=== PATIENT | male | born 1960 | race American Indian/Alaskan Native ===

== ENCOUNTER 2016-10-09 12:21 | Emergency (ER) | payer MEDICARE ==
[2016-10-09 13:09] LABS: Urine Drugs of Abuse Note Disclamer
[2016-10-09 13:18] LABS: Bilirubin,Urine NEG (Negative); Blood,Urine NEG (Negative); Ketones,Urine TR mg/dL (Negative); Leukocyte Esterase,Urine NEG (Negative); Mucus,Urine 1+ /HPF; Nitrite,Urine NEG (Negative); Protein,Urine <15 mg/dL mg/dL (Negative)
[2016-10-09 13:40] LABS: Basophils % (Auto) 0.8 % (0.0-1.8); Eosinophils % (Auto) 2.9 % (0.0-4.3); Hemoglobin 14.3 gm/dl (11.8-15.2); Mean Corpuscular HGB Conc 33 % (32-34); Mean Corpuscular Hemoglobin 33 pg (28-32); Mean Corpuscular Volume 100 fl (84-94); Platelet Count 141 K/mm3 (140-440); Red Cell Distribution Width 13.6 % (13.2-15.2); White Blood Count 6.2 K/mm3 (4.5-11.0)
[2016-10-09] MEDS ORDERED: ATIVAN PO ONE (13:43)
[2016-10-09] MEDS ORDERED: HALDOL PO ONE (13:44)
[2016-10-09 13:54] LABS: Anion Gap 18 mmol/L; Blood Urea Nitrogen 8 mg/dL (9-20); Calcium 8.9 mg/dL (8.4-10.2); Carbon Dioxide 24 mmol/L (22-30); Chloride 101.4 mmol/L (98-107); Glucose 142 mg/dL (75-100); Potassium 3.6 mmol/L (3.6-5.0); Sodium 140 mmol/L (137-145)
--- NOTE | 2016-10-09 13:54 | Emergency Department Report ---
ED Psych HPI - General Chief Complaint: Psych Stated Complaint: MH/EVAL/VIOLENT Time Seen by Provider: 10/09/16 13:43 Source: patient, per diem physical therapist assistant Mode of arrival: Ambulatory - History of Present Illness MD Complaint: altered mental status -: Sudden Associated Psychiatric Symptoms: depression, auditory hallucinations History of same: Yes Quality: constant Improves With: medication Context: not taking psychiatric Associated Symptoms: denies: confusion, headache, shortness of breath, nausea, vomiting, syncope Treatments Prior to Arrival: placed on mental he - Related Data Home Medications Medication Instructions Recorded Confirmed Last Taken Depakote 1,000 mg PO HS 09/01/16 10/09/16 Unknown ZyPREXA 5 mg PO DAILY 09/01/16 10/09/16 Unknown ZyPREXA 20 mg PO HS 09/01/16 10/09/16 Unknown Allergies Allergy/AdvReac Type Severity Reaction Status Date / Time No Known Allergies Allergy Verified 10/09/16 12:44 ED Review of Systems ROS: Stated complaint: MH/EVAL/VIOLENT Other details as noted in HPI Comment: All other systems reviewed and negative ED Past Medical Hx - Past Medical History Hx Psychiatric Treatment: Yes (SCHIZOAFFECTIVE / IMPULSIVE BEHAVIOR) - Social History Smoking Status: Current Every Day Smoker Substance Use Type: None - Medications Home Medications: Home Medications Medication Instructions Recorded Confirmed Last Taken Type Depakote 1,000 mg PO HS 09/01/16 10/09/16 Unknown History ZyPREXA 5 mg PO DAILY 09/01/16 10/09/16 Unknown History ZyPREXA 20 mg PO HS 09/01/16 10/09/16 Unknown History ED Physical Exam - General Limitations: Altered Mental Status General appearance: alert, in no apparent distress - Head Head exam: Present: atraumatic, normocephalic - Eye Eye exam: Present: normal appearance - ENT ENT exam: Present: mucous membranes moist - Neck Neck exam: Present: normal inspection - Respiratory Respiratory exam: Present: normal lung sounds bilaterally. Absent: respiratory distress - Cardiovascular Cardiovascular Exam: Present: regular rate, normal rhythm. Absent: systolic murmur, diastolic murmur, rubs, gallop - GI/Abdominal GI/Abdominal exam: Present: soft, normal bowel sounds - Rectal Rectal exam: Present: deferred - Extremities Exam Extremities exam: Present: normal inspection - Back Exam Back exam: Present: normal inspection - Neurological Exam Neurological exam: Present: alert, oriented X3 - Psychiatric Psychiatric exam: Present: agitated - Skin Skin exam: Present: warm, dry, intact, normal color. Absent: rash ED Course Vital Signs 10/09/16 12:40 Temperature 98.2 F Pulse Rate 100 H Respiratory 20 Rate Blood Pressure 157/94 O2 Sat by Pulse 98 Oximetry ED Medical Decision Making - Lab Data Result diagrams: 10/09/16 13:23 Critical care attestation.: If time is entered above; I have spent that time in minutes in the direct care of this critically ill patient, excluding procedure time. ED Disposition Condition: Stable Referrals: PRIMARY CARE, [Primary Care Provider] - 3-5 Days
[2016-10-09 14:44] LABS: Urine Drugs of Abuse Note Disclamer
[2016-10-10] MEDS ORDERED: ATIVAN PO ONE (01:30)
[2016-10-10] MEDS ORDERED: ATIVAN IM PRN (02:01)
--- NOTE | 2016-10-10 02:03 | Event Note ---
Date: 10/10/16 Vital signs are reviewed and appreciated. As needed lorazepam and scheduled Zyprexa ordered. Valproic acid level is added on, depending on this level, we will reinitiate the patient's valproic acid. Psychiatric consultation and placement are pending at this time. Vital Signs 10/09/16 10/09/16 10/09/16 12:40 13:27 20:30 Temperature 98.2 F Pulse Rate 100 H 72 Respiratory 20 20 16 Rate Blood Pressure 157/94 Blood Pressure 142/78 [Left] O2 Sat by Pulse 98 98 100 Oximetry
[2016-10-10] MEDS ORDERED: ZYPREXA 5 MG PO SCH (10:00)
[2016-10-10 13:05] VITALS: BP 111/82
[2016-10-10] MEDS ORDERED: ZYPREXA 20 MG PO SCH (22:00)
== END 2016-10-10 14:53 ==
LOC: ED 12:21 → EEVIPCON 12:21 → ED 10-10 14:53
DX: R41.82 Altered mental status, unspecified (principal); F32.9 Major depressive disorder, single episode, unspecified; R44.0 Auditory hallucinations; F25.9 Schizoaffective disorder, unspecified; F17.200 Nicotine dependence, unspecified, uncomplicated
CPT/HCPCS: 36415; 80048; 80164; 80307; 81001; 85025; 96372; 99285; G0480; J2060; 80320

== ENCOUNTER → 2018-08-18 02:08 | Emergency (ER) | payer MEDICARE | END | disposition left against medical advice (07) | LOC: ED 02:08 ==

== ENCOUNTER 2018-09-12 12:49 | Emergency (ER) | payer MEDICARE ==
--- NOTE | 2018-09-12 12:59 | Emergency Department Report ---
Chief Complaint: Extremity Problem,Nontraumatic Stated Complaint: back pain Time Seen by Provider: 09/12/18 12:55 - HPI History of Present Illness: ambulatory to triage co back pain unclear what pt is telling me hx schizophrenia lives in apartment with someone else rambling disorganized speech cig etoh thc no si no hi aud hallucination MSE completed MSE screening note: Focused history and physical exam performed. Due to findings the following was ordered: ED Disposition for MSE Condition: Stable
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
[2018-09-12 14:14] LABS: Basophils % (Auto) 0.7 % (0.0-1.8); Eosinophils # (Auto) 0.1 K/mm3 (0.0-0.4); Eosinophils % (Auto) 2.7 % (0.0-4.3); Hematocrit 39.4 % (35.5-45.6); Hemoglobin 13.1 gm/dl (11.8-15.2); Lymphocytes # (Auto) 1.2 K/mm3 (1.2-5.4); Lymphocytes % (Auto) 35.2 % (13.4-35.0); Mean Corpuscular HGB Conc 33 % (32-34); Mean Corpuscular Volume 101 fl (84-94); Monocytes # (Auto) 0.2 K/mm3 (0.0-0.8); Monocytes % (Auto) 6.6 % (0.0-7.3); Platelet Count 124 K/mm3 (140-440); Red Blood Count 3.89 M/mm3 (3.65-5.03); Red Cell Distribution Width 13.9 % (13.2-15.2)
[2018-09-12 14:31] LABS: BUN/Creatinine Ratio 16; Blood Urea Nitrogen 11 mg/dL (9-20); Hemolysis Index 6
[2018-09-12 15:43] VITALS: BP 133/79
[2018-09-12 16:34] LABS: Bilirubin,Urine NEG (Negative); Blood,Urine NEG (Negative); Color,Urine Yellow (Yellow); Protein,Urine <15 mg/dL mg/dL (Negative)
[2018-09-12 16:43] LABS: Amphetamine Screen,Urine PRESUMPTIVE NEGATIVE; Benzodiazepines Screen,Urine PRESUMPTIVE NEGATIVE; Cannabinoid Screen,Urine PRESUMPTIVE NEGATIVE; Cocaine Screen,Urine PRESUMPTIVE NEGATIVE; Methadone Screen,Urine PRESUMPTIVE NEGATIVE; Opiate Screen,Urine PRESUMPTIVE NEGATIVE
== END 2018-09-12 17:36 | disposition left against medical advice (07) ==
LOC: ED 12:49
DX: F20.9 Schizophrenia, unspecified (principal); F29 Unspecified psychosis not due to a substance or known physiological condition; F17.200 Nicotine dependence, unspecified, uncomplicated; F12.10 Cannabis abuse, uncomplicated; Z79.899 Other long term (current) drug therapy
CPT/HCPCS: 36415; 80048; 80307; 81001; 85025; 99283; G0480; 80320

== ENCOUNTER 2018-10-22 18:11 | Emergency (ER) | payer MEDICARE | END 2018-10-22 18:12 | disposition left against medical advice (07) | LOC: ED 18:11 | DX: M79.606 Pain in leg, unspecified (principal); Z53.21 Procedure and treatment not carried out due to patient leaving prior to being seen by health care provider ==

== ENCOUNTER 2019-07-08 20:18 | Emergency (ER) | payer MEDICAID, MEDICARE ==
[2019-07-08 21:34] VITALS: BP 148/84
--- NOTE | 2019-07-08 22:44 | Emergency Department Report ---
Blank Doc - Documentation Documentation: 59-year-old male that presents with bilatearl leg pain and weakness after prol leonila walking. This initial assessment/diagnostic orders/clinical plan/treatment(s) is/are subject to change based on patient's health status, clinical progression and re- assessment by fellow clinical providers in the ED. Further treatment and workup at subsequent clinical providers discretion. Patient/guardians urged not to elope from the ED as their condition may be serious if not clinically assessed and managed. Initial orders include: 1- Patient sent to [facility] for further evaluation and treatment 2- labs 3- UA
[2019-07-08 23:38] LABS: Basophils % (Auto) 0.5 % (0.0-1.8); Eosinophils # (Auto) 0.3 K/mm3 (0.0-0.4); Eosinophils % (Auto) 5.2 % (0.0-4.3); Hematocrit 36.9 % (35.5-45.6); Hemoglobin 12.3 gm/dl (11.8-15.2); Lymphocytes # (Auto) 1.2 K/mm3 (1.2-5.4); Mean Corpuscular HGB Conc 33 % (32-34); Mean Corpuscular Volume 102 fl (84-94); Monocytes # (Auto) 0.5 K/mm3 (0.0-0.8); Monocytes % (Auto) 9.4 % (0.0-7.3); Platelet Count 161 K/mm3 (140-440); Red Blood Count 3.61 M/mm3 (3.65-5.03); Red Cell Distribution Width 13.3 % (13.2-15.2)
[2019-07-09 00:02] LABS: BUN/Creatinine Ratio 19; Blood Urea Nitrogen 13 mg/dL (9-20); Calcium 9.2 mg/dL (8.4-10.2); Hemolysis Index 6
== END 2019-07-08 23:00 | disposition left against medical advice (07) ==
LOC: ED 20:18
DX: M79.606 Pain in leg, unspecified (principal); Z53.21 Procedure and treatment not carried out due to patient leaving prior to being seen by health care provider
CPT/HCPCS: 36415; 80048; 82550; 85025

== ENCOUNTER 2019-07-13 00:52 | Emergency (ER) | payer MEDICAID ==
[2019-07-13 01:33] VITALS: BP 164/70
== END 2019-07-13 01:43 | disposition left against medical advice (07) ==
LOC: ED 00:52
DX: M79.604 Pain in right leg (principal); Z53.21 Procedure and treatment not carried out due to patient leaving prior to being seen by health care provider

== ENCOUNTER 2019-07-16 21:23 | Emergency (ER) | payer MEDICARE, MEDICAID ==
[2019-07-16 23:54] LABS: Basophils % (Auto) 0.4 % (0.0-1.8); Eosinophils # (Auto) 0.1 K/mm3 (0.0-0.4); Eosinophils % (Auto) 2.8 % (0.0-4.3); Lymphocytes # (Auto) 0.7 K/mm3 (1.2-5.4); Lymphocytes % (Auto) 15.5 % (13.4-35.0); Mean Corpuscular HGB Conc 33 % (32-34); Mean Corpuscular Volume 103 fl (84-94); Monocytes # (Auto) 0.4 K/mm3 (0.0-0.8); Monocytes % (Auto) 7.8 % (0.0-7.3); Platelet Count 142 K/mm3 (140-440); Red Blood Count 3.51 M/mm3 (3.65-5.03); Red Cell Distribution Width 13.4 % (13.2-15.2)
[2019-07-17 00:27] LABS: BUN/Creatinine Ratio 22; Blood Urea Nitrogen 13 mg/dL (9-20); Calcium 9.3 mg/dL (8.4-10.2); Hemolysis Index 17
--- NOTE | 2019-07-17 05:10 | Emergency Department Report ---
ED Psych HPI - General Chief Complaint: Psych Stated Complaint: MH EVAL/BILATERAL LEG PAIN Time Seen by Provider: 07/16/19 22:47 Source: EMS Mode of arrival: Ambulatory - History of Present Illness Initial Comments: Patient is a 59-year-old -Welsh male with past history of schizophrenia who is presenting with auditory hallucinations. Patient states is off his medications and would like to get the refill. Patient also states that he has lower extremity edema. He is unable to say how long the edema is present. Patient does has disorganized thoughts and is a poor historian. Patient denies any homicidal suicidal ideations at this time. Patient denies any chest pain shortness of breath associated with leg swelling. - Related Data Home Medications Medication Instructions Recorded Confirmed Last Taken Depakote 1,000 mg PO HS 09/01/16 07/16/19 Unknown ZyPREXA 5 mg PO DAILY 09/01/16 07/16/19 Unknown ZyPREXA 20 mg PO HS 09/01/16 07/16/19 Unknown Previous Rx's Medication Instructions Recorded Last Taken Type Cyclobenzaprine [Flexeril] 10 mg PO Q8H PRN #15 tablet 07/30/19 Unknown Rx Ibuprofen [Motrin] 600 mg PO Q8H PRN #15 tablet 07/30/19 Unknown Rx Allergies Allergy/AdvReac Type Severity Reaction Status Date / Time No Known Allergies Allergy Verified 09/12/18 12:55 ED Review of Systems ROS: Stated complaint: MH EVAL/BILATERAL LEG PAIN Other details as noted in HPI Comment: All other systems reviewed and negative ED Past Medical Hx - Past Medical History Previous Medical History?: Yes Hx Psychiatric Treatment: Yes (SCHIZOAFFECTIVE / IMPULSIVE BEHAVIOR) - Surgical History Past Surgical History?: No - Social History Smoking Status: Current Every Day Smoker Substance Use Type: None - Medications Home Medications: Home Medications Medication Instructions Recorded Confirmed Last Taken Type Depakote 1,000 mg PO HS 09/01/16 07/16/19 Unknown History ZyPREXA 5 mg PO DAILY 09/01/16 07/16/19 Unknown History ZyPREXA 20 mg PO HS 09/01/16 07/16/19 Unknown History Cyclobenzaprine [Flexeril] 10 mg PO Q8H PRN #15 tablet 07/30/19 Unknown Rx Ibuprofen [Motrin] 600 mg PO Q8H PRN #15 tablet 07/30/19 Unknown Rx ED Physical Exam - General Limitations: No Limitations General appearance: alert, in no apparent distress - Head Head exam: Present: atraumatic, normocephalic - Eye Eye exam: Present: normal appearance - ENT ENT exam: Present: mucous membranes moist - Neck Neck exam: Present: normal inspection - Respiratory Respiratory exam: Present: normal lung sounds bilaterally. Absent: respiratory distress, wheezes, rales, rhonchi - Cardiovascular Cardiovascular Exam: Present: regular rate, normal rhythm. Absent: systolic murmur, diastolic murmur, rubs, gallop - GI/Abdominal GI/Abdominal exam: Present: soft, normal bowel sounds. Absent: distended, tenderness, guarding - Rectal Rectal exam: Present: deferred - Extremities Exam Extremities exam: Present: normal inspection, other (2+ edema to the bilateral lower extremities) - Back Exam Back exam: Present: normal inspection - Neurological Exam Neurological exam: Present: alert, oriented X3 - Psychiatric Psychiatric exam: Present: normal affect, normal mood - Skin Skin exam: Present: warm, dry, intact, normal color. Absent: rash ED Course Vital Signs 07/16/19 07/16/19 07/17/19 21:31 23:12 20:02 Temperature 99.2 F 99.0 F Pulse Rate 90 85 Respiratory 16 18 18 Rate Blood Pressure 116/68 Blood Pressure 132/88 [Right] O2 Sat by Pulse 97 97 Oximetry 07/17/19 20:15 Temperature 98.5 F Pulse Rate 85 Respiratory 16 Rate Blood Pressure Blood Pressure 129/76 [Right] O2 Sat by Pulse 96 Oximetry - Reevaluation(s) Reevaluation #1: 07/17/19 05:09 Patient is medically cleared for psychiatric evaluation. Lower extremity edema does not appear to be secondary to congestive heart failure. At the end of my shift urine has not been collected. 07/17/19 05:09 07/17/19 05:09 ED Medical Decision Making - Lab Data Result diagrams: 07/16/19 23:37 07/16/19 23:37 Lab Results 07/16/19 07/16/19 07/16/19 Range/Units 23:37 23:37 23:37 WBC 4.7 (4.5-11.0) K/mm3 RBC 3.51 L (3.65-5.03) M/mm3 Hgb 12.0 (11.8-15.2) gm/dl Hct 36.0 (35.5-45.6) % MCV 103 H (84-94) fl MCH 34 H (28-32) pg MCHC 33 (32-34) % RDW 13.4 (13.2-15.2) % Plt Count 142 (140-440) K/mm3 Lymph % (Auto) 15.5 (13.4-35.0) % [place] % (Auto) 7.8 H (0.0-7.3) % Eos % (Auto) 2.8 (0.0-4.3) % Baso % (Auto) 0.4 (0.0-1.8) % Lymph # 0.7 L (1.2-5.4) K/mm3 [place] # 0.4 (0.0-0.8) K/mm3 Eos # 0.1 (0.0-0.4) K/mm3 Baso # 0.0 (0.0-0.1) K/mm3 Seg Neutrophils % 73.5 H (40.0-70.0) % Seg Neutrophils # 3.4 (1.8-7.7) K/mm3 Sodium 140 (137-145) mmol/L Potassium 4.7 (3.6-5.0) mmol/L Chloride 102.0 (98-107) mmol/L Carbon Dioxide 25 (22-30) mmol/L Anion Gap 18 mmol/L BUN 13 (9-20) mg/dL Creatinine 0.6 L (0.8-1.5) mg/dL Estimated GFR > 60 ml/min BUN/Creatinine Ratio 22 % Glucose 102 H (75-100) mg/dL Calcium 9.3 (8.4-10.2) mg/dL NT-Pro-B Natriuret Pep 60.42 (0-900) pg/mL Salicylates < 0.3 L (2.8-20.0) mg/dL Acetaminophen (10.0-30.0) ug/mL Plasma/Serum Alcohol (0-0.07) % 07/16/19 07/16/19 Range/Units 23:37 23:37 WBC (4.5-11.0) K/mm3 RBC (3.65-5.03) M/mm3 Hgb (11.8-15.2) gm/dl Hct (35.5-45.6) % MCV (84-94) fl MCH (28-32) pg MCHC (32-34) % RDW (13.2-15.2) % Plt Count (140-440) K/mm3 Lymph % (Auto) (13.4-35.0) % [place] % (Auto) (0.0-7.3) % Eos % (Auto) (0.0-4.3) % Baso % (Auto) (0.0-1.8) % Lymph # (1.2-5.4) K/mm3 [place] # (0.0-0.8) K/mm3 Eos # (0.0-0.4) K/mm3 Baso # (0.0-0.1) K/mm3 Seg Neutrophils % (40.0-70.0) % Seg Neutrophils # (1.8-7.7) K/mm3 Sodium (137-145) mmol/L Potassium (3.6-5.0) mmol/L Chloride (98-107) mmol/L Carbon Dioxide (22-30) mmol/L Anion Gap mmol/L BUN (9-20) mg/dL Creatinine (0.8-1.5) mg/dL Estimated GFR ml/min BUN/Creatinine Ratio % Glucose (75-100) mg/dL Calcium (8.4-10.2) mg/dL NT-Pro-B Natriuret Pep (0-900) pg/mL Salicylates (2.8-20.0) mg/dL Acetaminophen < 5.0 L (10.0-30.0) ug/mL Plasma/Serum Alcohol < 0.01 (0-0.07) % Critical care attestation.: If time is entered above; I have spent that time in minutes in the direct care of this critically ill patient, excluding procedure time. ED Disposition Clinical Impression: Acute psychosis Disposition: [id number]/TX-65 PSY HOSP/PSY UNIT Is pt being admited?: No Does the pt Need Aspirin: No Condition: Stable Referrals: CHET RENTERIA MD [Primary Care Provider] - 3-5 Days Time of Disposition: 13:55
[2019-07-17 06:55] LABS: Bilirubin,Urine NEG (Negative); Blood,Urine NEG (Negative); Color,Urine Straw (Yellow); Protein,Urine <15 mg/dL mg/dL (Negative); RBC,Urine < 1.0 /HPF (0.0-6.0); WBC,Urine < 1.0 /HPF (0.0-6.0)
[2019-07-17 07:24] LABS: Amphetamine Screen,Urine PRESUMPTIVE NEGATIVE; Benzodiazepines Screen,Urine PRESUMPTIVE NEGATIVE; Cocaine Screen,Urine PRESUMPTIVE NEGATIVE; Methadone Screen,Urine PRESUMPTIVE NEGATIVE; Opiate Screen,Urine PRESUMPTIVE NEGATIVE
[2019-07-17 07:47] LABS: Cannabinoid Screen,Urine PRESUMPTIVE POSITIVE
[2019-07-17 20:17] VITALS: BP 129/76
== END 2019-07-17 21:00 ==
LOC: ED 21:23 → EEVIPCON 21:23 → ED 07-17 21:00
DX: F25.8 Other schizoaffective disorders (principal); R44.0 Auditory hallucinations; R60.0 Localized edema; F17.200 Nicotine dependence, unspecified, uncomplicated; Z79.899 Other long term (current) drug therapy
CPT/HCPCS: 36415; 80048; 80307; 80320; 81001; 83880; 85025; G0480

== ENCOUNTER 2019-07-29 22:51 | Emergency (ER) | payer MEDICAID ==
[2019-07-29 22:57] VITALS: BP 124/72
[2019-07-30] MEDS ORDERED: IBUPROFEN 600 MG TAB PO ONE (03:33)
[2019-07-30] MEDS ORDERED: ACETAMINOPHEN 500 MG TAB PO ONE (03:33)
--- NOTE | 2019-07-30 03:38 | Emergency Department Report ---
ED Back Pain/Injury HPI - General Chief Complaint: Back Pain/Injury Stated Complaint: LOWER BACK PAIN Source: patient Limitations: No Limitations - History of Present Illness Initial Comments: Patient is a 59 year-old male with a history of chronic anxiety and depression and schizophrenia who presents to the ED with [place] of acute onset persistent nontraumatic low back pain for the last 8 hours after walking for a while. Patient denies fall, traumatic injury, heavy lifting, dysuria, urinary frequency and urgency, nausea, vomiting, fever, chills, hematuria or urinary frequency and urgency. MD Complaint: back pain, other (left knee pain) -: Sudden, hour(s) (8) Similar Symptoms Previously: No Place: home Radiation: none Severity: moderate Severity scale (0 -10): 6 Quality: sharp, aching Consistency: constant Improves With: none Worsens With: movement, walking Context: unknown Associated Symptoms: denies other symptoms. denies: weakness, chest pain, difficulty walking, cough, difficulty urinating, diaphoresis, incontinence, constipation, headaches, abdominal pain, loss of appetite, malaise, nausea/vomiting, rash, syncope - Related Data Home Medications Medication Instructions Recorded Confirmed Last Taken Depakote 1,000 mg PO HS 09/01/16 07/16/19 Unknown ZyPREXA 5 mg PO DAILY 09/01/16 07/16/19 Unknown ZyPREXA 20 mg PO HS 09/01/16 07/16/19 Unknown Previous Rx's Medication Instructions Recorded Last Taken Type Cyclobenzaprine [Flexeril] 10 mg PO Q8H PRN #15 tablet 07/30/19 Unknown Rx Ibuprofen [Motrin] 600 mg PO Q8H PRN #15 tablet 07/30/19 Unknown Rx Allergies Allergy/AdvReac Type Severity Reaction Status Date / Time No Known Allergies Allergy Verified 09/12/18 12:55 ED Review of Systems ROS: Stated complaint: LOWER BACK PAIN Other details as noted in HPI Constitutional: denies: chills, fever Eyes: denies: eye pain, eye discharge, vision change ENT: denies: ear pain, throat pain Respiratory: denies: cough, shortness of breath, wheezing Cardiovascular: denies: chest pain, palpitations Endocrine: no symptoms reported Gastrointestinal: denies: abdominal pain, nausea, diarrhea Genitourinary: denies: urgency, dysuria Musculoskeletal: back pain, arthralgia (left knee pain). denies: joint swelling Skin: denies: rash, lesions Neurological: denies: headache, weakness, paresthesias Psychiatric: denies: anxiety, depression Hematological/Lymphatic: denies: easy bleeding, easy bruising ED Past Medical Hx - Past Medical History Previous Medical History?: Yes Hx Psychiatric Treatment: Yes (SCHIZOAFFECTIVE / IMPULSIVE BEHAVIOR) - Surgical History Past Surgical History?: No - Social History Smoking Status: Current Every Day Smoker Substance Use Type: Marijuana - Medications Home Medications: Home Medications Medication Instructions Recorded Confirmed Last Taken Type Depakote 1,000 mg PO HS 09/01/16 07/16/19 Unknown History ZyPREXA 5 mg PO DAILY 09/01/16 07/16/19 Unknown History ZyPREXA 20 mg PO HS 09/01/16 07/16/19 Unknown History Cyclobenzaprine [Flexeril] 10 mg PO Q8H PRN #15 tablet 07/30/19 Unknown Rx Ibuprofen [Motrin] 600 mg PO Q8H PRN #15 tablet 07/30/19 Unknown Rx ED Physical Exam - General Limitations: No Limitations General appearance: alert, in no apparent distress - Head Head exam: Present: atraumatic, normocephalic, normal inspection - Eye Eye exam: Present: normal appearance, PERRL, EOMI Pupils: Present: normal accommodation - ENT ENT exam: Present: normal exam, normal orophraynx, mucous membranes moist, TM's normal bilaterally, normal external ear exam - Neck Neck exam: Present: normal inspection, full ROM - Respiratory Respiratory exam: Present: normal lung sounds bilaterally. Absent: respiratory distress, wheezes, chest wall tenderness, accessory muscle use, prolonged expiratory - Cardiovascular Cardiovascular Exam: Present: regular rate, normal rhythm, normal heart sounds. Absent: systolic murmur, diastolic murmur, rubs, gallop - GI/Abdominal GI/Abdominal exam: Present: soft, normal bowel sounds. Absent: tenderness, guarding, hyperactive bowel sounds - Extremities Exam Extremities exam: Present: normal inspection, full ROM, normal capillary refill - Back Exam Back exam: Present: normal inspection, full ROM, tenderness (palpable lumbosacral paraspinal musculoskeletal tenderness), muscle spasm, paraspinal tenderness - Neurological Exam Neurological exam: Present: alert, oriented X3, CN II-XII intact, normal gait, reflexes normal - Psychiatric Psychiatric exam: Present: normal affect, normal mood - Skin Skin exam: Present: warm, dry, intact, normal color. Absent: rash ED Course Vital Signs 07/29/19 22:55 Temperature 98.4 F Pulse Rate 79 Respiratory 16 Rate Blood Pressure 124/72 O2 Sat by Pulse 100 Oximetry ED Medical Decision Making - Medical Decision Making This is a 59-year-old male who presented to the ED with acute onset persistent low back pain and left knee pain after walking for a while. In the ED, patient is alert and oriented 3 and is not in any distress. Patient was treated for pain in the ED and discharged home on muscle relaxants and pain medications. Patient was advised to follow-up with his primary care physician in 5-7 days for reevaluation or return to the ED immediately if symptoms get worse. - Differential Diagnosis muscle spasm; low back pain, muscle strain Critical care attestation.: If time is entered above; I have spent that time in minutes in the direct care of this critically ill patient, excluding procedure time. ED Disposition Clinical Impression: Spasm of muscle of lower back, Strain of muscle, fascia and tendon of lower back, initial encounter Muscle strain of left knee Qualifiers: Encounter type: initial encounter Qualified Code(s): S86.912A - Strain of unspecified muscle(s) and tendon(s) at lower leg level, left leg, initial encounter Disposition: - TO HOME OR SELFCARE Is pt being admited?: No Does the pt Need Aspirin: No Condition: Stable Instructions: Muscle Strain (ED), Acute Low Back Pain (ED), Muscle Spasm (ED) Additional Instructions: Take medications with food, drink plenty of fluids and follow-up with primary care physician in 7-10 days for reevaluation. Return to the ED immediately if symptoms get worse. Prescriptions: Cyclobenzaprine [Flexeril] 10 mg PO Q8H PRN #15 tablet PRN Reason: Muscle Spasm Ibuprofen [Motrin] 600 mg PO Q8H PRN #15 tablet PRN Reason: Pain Referrals: PRIMARY CARE, [Primary Care Provider] - 3-5 Days Time of Disposition: 03:37 Print Language: BULGARIAN
== END 2019-07-30 04:39 | disposition home or self-care (01) ==
LOC: ED 22:51
DX: S39.012A Strain of muscle, fascia and tendon of lower back, initial encounter (principal); S86.912A Strain of unspecified muscle(s) and tendon(s) at lower leg level, left leg, initial encounter; M62.830 Muscle spasm of back; F12.10 Cannabis abuse, uncomplicated; F17.200 Nicotine dependence, unspecified, uncomplicated; Z79.899 Other long term (current) drug therapy; X58.XXXA Exposure to other specified factors, initial encounter; Y93.89 Activity, other specified; Y92.89 Other specified places as the place of occurrence of the external cause; Y99.8 Other external cause status

== ENCOUNTER 2019-09-15 13:53 | Emergency (ER) | payer MEDICARE ==
--- NOTE | 2019-09-15 15:03 | Emergency Department Report ---
ED General Adult HPI - General Chief complaint: Psych Stated complaint: 1013 Time Seen by Provider: 09/15/19 14:43 Source: police Mode of arrival: Ambulatory Limitations: No Limitations - History of Present Illness Initial comments: The patient presents to the emergency department via [facility] for trespassing and penal someone else's property. Patient denies any homicidal suicidal ideations. Patient states he is having issues with housing secondary to the incident that happened at [place]. Patient has no complaints of chest pain, shortness breath, or headache. -: Sudden Severity scale (0 -10): 0 Consistency: now resolved Improves with: none Worsens with: none Associated Symptoms: denies other symptoms Treatments Prior to Arrival: none - Related Data Home Medications Medication Instructions Recorded Confirmed Last Taken Depakote 1,000 mg PO HS 09/01/16 07/16/19 Unknown ZyPREXA 5 mg PO DAILY 09/01/16 07/16/19 Unknown ZyPREXA 20 mg PO HS 09/01/16 07/16/19 Unknown Previous Rx's Medication Instructions Recorded Last Taken Type Cyclobenzaprine [Flexeril] 10 mg PO Q8H PRN #15 tablet 07/30/19 Unknown Rx Ibuprofen [Motrin] 600 mg PO Q8H PRN #15 tablet 07/30/19 Unknown Rx Allergies Allergy/AdvReac Type Severity Reaction Status Date / Time No Known Allergies Allergy Verified 09/12/18 12:55 ED Review of Systems ROS: Stated complaint: 1013 Other details as noted in HPI Comment: All other systems reviewed and negative Constitutional: denies: chills, fever Eyes: denies: eye pain, eye discharge, vision change ENT: denies: ear pain, throat pain Respiratory: denies: cough, shortness of breath, wheezing Cardiovascular: denies: chest pain, palpitations Endocrine: no symptoms reported Gastrointestinal: denies: abdominal pain, nausea, diarrhea Genitourinary: denies: urgency, dysuria Musculoskeletal: denies: back pain, joint swelling, arthralgia Skin: denies: rash, lesions Neurological: denies: headache, weakness, paresthesias Psychiatric: denies: anxiety, depression, auditory hallucinations, visual hallucinations, homicidal thoughts, suicidal thoughts Hematological/Lymphatic: denies: easy bleeding, easy bruising ED Past Medical Hx - Past Medical History Previous Medical History?: Yes Hx Psychiatric Treatment: Yes (SCHIZOAFFECTIVE / IMPULSIVE BEHAVIOR) - Social History Smoking Status: Current Every Day Smoker Substance Use Type: Alcohol, Marijuana - Medications Home Medications: Home Medications Medication Instructions Recorded Confirmed Last Taken Type Depakote 1,000 mg PO HS 09/01/16 07/16/19 Unknown History ZyPREXA 5 mg PO DAILY 09/01/16 07/16/19 Unknown History ZyPREXA 20 mg PO HS 09/01/16 07/16/19 Unknown History Cyclobenzaprine [Flexeril] 10 mg PO Q8H PRN #15 tablet 07/30/19 Unknown Rx Ibuprofen [Motrin] 600 mg PO Q8H PRN #15 tablet 07/30/19 Unknown Rx ED Physical Exam - General Limitations: No Limitations General appearance: alert, in no apparent distress - Head Head exam: Present: atraumatic, normocephalic - Eye Eye exam: Present: normal appearance, PERRL, EOMI - ENT ENT exam: Present: mucous membranes moist - Neck Neck exam: Present: normal inspection - Respiratory Respiratory exam: Present: normal lung sounds bilaterally. Absent: respiratory distress - Cardiovascular Cardiovascular Exam: Present: regular rate, normal rhythm. Absent: systolic murmur, diastolic murmur, rubs, gallop - GI/Abdominal GI/Abdominal exam: Present: soft, normal bowel sounds - Rectal Rectal exam: Present: deferred - Extremities Exam Extremities exam: Present: normal inspection - Back Exam Back exam: Present: normal inspection - Neurological Exam Neurological exam: Present: alert, oriented X3, CN II-XII intact. Absent: motor sensory deficit - Psychiatric Psychiatric exam: Present: normal affect, normal mood - Skin Skin exam: Present: warm, dry, intact, normal color. Absent: rash ED Medical Decision Making - Medical Decision Making Due to the patient not being homicidal suicidal and not having auditory or visual hallucinations psychiatric evaluation was deemed not necessary and patient was really having more of a conduct behavior disorder which would be legal in nature and not medical. Critical care attestation.: If time is entered above; I have spent that time in minutes in the direct care of this critically ill patient, excluding procedure time. ED Disposition Clinical Impression: Agitation Disposition: DC-01 TO HOME OR SELFCARE Is pt being admited?: No Does the pt Need Aspirin: No Condition: Stable Instructions: Conduct Disorder (ED) Additional Instructions: return if worse Referrals: [facility] [Provider Group] - 3-5 Days [facility] [Provider Group] - 3-5 Days Time of Disposition: 15:02
== END 2019-09-15 16:02 | disposition home or self-care (01) ==
LOC: ED 13:53
DX: R45.1 Restlessness and agitation (principal); F91.8 Other conduct disorders; F25.9 Schizoaffective disorder, unspecified; F17.200 Nicotine dependence, unspecified, uncomplicated; F12.10 Cannabis abuse, uncomplicated; Z79.1 Long term (current) use of non-steroidal anti-inflammatories (NSAID); Z79.899 Other long term (current) drug therapy